=== PATIENT | female | born 1965 | race African-American/Black ===

== ENCOUNTER 2016-11-09 02:13 | Emergency (ER) | payer BC ==
[~2016-11-09] VITALS: Ht 157.5 cm; Wt 82.1 kg
[~2016-11-09 02:13] MED LIST: DIFLUCAN150 MG PO; FLAGYL500 MG PO; METFORMIN HCL1000 M1 PO; NORCO 5-325 TA1 EACH PO; SYMBICORT160 MCG/4. INH
[2016-11-09 02:39] LABS: URINE BILIRUBIN 1+ (Negative); URINE BLOOD 3+ (Negative); URINE COLOR YELLOW; URINE GLUCOSE-RANDOM* NEGATIVE (Negative); URINE KETONES NEGATIVE (Negative); URINE NITRITE NEGATIVE (Negative); URINE PROTEIN (DIPSTICK) 1+ (Negative); URINE SPECIFIC GRAVITY >= 1.030 (1.003-1.035); URINE UROBILINOGEN 0.2 E.U./dl (0.2-1.0)
[2016-11-09 02:43] LABS: ABSOLUTE NEUTROPHILS 3.7 thou/uL (1.4-8.2); BASOPHILS 0.8 % (0.0-2.0); EOSINOPHILS 3.1 % (0.0-3.0); HEMATOCRIT 46.4 % (37.0-47.0); HEMOGLOBIN 15.6 gm/dL (12.0-15.0); LYMPHOCYTES 28.1 % (24.0-44.0); MANUAL DIFF NO; MCH 29.9 pg (26.0-34.0); MCHC 33.5 % (28.0-37.0); MCV 89.1 fL (80.0-100.0); MONOCYTES 10.2 % (1.0-8.0); PLATELET COUNT 176 thou/uL (150-400); POLYS 57.8 % (36.0-66.0); RBC 5.21 mil/uL (4.20-5.00); RDW 13.7 % (10.5-14.5); WBC 6.4 thou/uL (4.0-11.0)
[2016-11-09 02:47] LABS: ICTOTEST (BILI CONFIRMATORY) Positive (Negative)
[2016-11-09 02:53] LABS: CALCIUM 9.1 mg/dL (8.5-10.1); CREATININE 0.9 mg/dL (0.6-1.3); POTASSIUM 4.1 mmol/L (3.5-5.1)
[2016-11-09 02:55] LABS: CRYSTALS None Seen /LPF (None Seen); SQUAMOUS >10 Many /LPF (0-3); URINE RBC 3-10 Few /HPF (0-2); URINE WBC 0-5 Rare /HPF (0-5)
[2016-11-09 02:56] LABS: CASTS None Seen /LPF (None Seen)
[2016-11-09] MEDS ORDERED: FLOMAX0.4 MG PO (03:54)
[2016-11-09] MEDS ORDERED: ZOFRAN ODT4 MG PO (03:54)
[2016-11-09] MEDS ORDERED: NORCO 5-325 TA1 EACH PO (03:54)
[2016-11-09 03:57] VITALS: BP 166/71
== END 2016-11-09 03:59 | disposition home or self-care (01) ==
LOC: ER 02:13
PROVIDERS: Emergency Medicine
DX: N20.1 Calculus of ureter (principal); R10.31 Right lower quadrant pain; J45.909 Unspecified asthma, uncomplicated; F10.99 Alcohol use, unspecified with unspecified alcohol-induced disorder; Z90.710 Acquired absence of both cervix and uterus; Z98.890 Other specified postprocedural states